=== PATIENT | female | born 1945 | race Caucasian/White ===

== ENCOUNTER 2023-08-12 15:36 | Emergency (ER) | payer MEDICARE ==
[2023-08-12 15:55] LABS: BASOPHILS # (AUTO) 0.1 10^3/uL (0.0-0.1); BASOPHILS % (AUTO) 0.8 %; EOSINOPHILS # (AUTO) 0.2 10^3/uL (0.0-0.7); EOSINOPHILS % (AUTO) 3.5 %; HCT - HEMATOCRIT 41.8 % (37.0-47.0); HGB - HEMOGLOBIN 13.3 g/dL (12.0-16.0); LYMPHOCYTES # (AUTO) 1.7 10^3/uL (1.5-3.5); LYMPHOCYTES % (AUTO) 27.2 %; MEAN CORPUSCULAR HEMOGLOBIN 29.1 pg (27.0-31.0); MEAN CORPUSCULAR HGB CONC 31.8 g/dL (32.0-36.0); MEAN CORPUSCULAR VOLUME 91.5 fL (81.0-99.0); MEAN PLATELET VOLUME 8.8 fL (7.9-10.8); MONOCYTES # (AUTO) 0.7 10^3/uL (0.0-1.0); MONOCYTES % (AUTO) 10.8 %; NEUTROPHILS # (AUTO) 3.7 10^3/uL (1.5-6.6); NEUTROPHILS % (AUTO) 57.5 %; PLT - PLATELET COUNT 285 10^3/uL (130-450); RED BLOOD COUNT 4.57 10^6/uL (4.20-5.40); RED CELL DISTRIBUTION WIDTH 13.6 % (12.0-15.0); WHITE BLOOD COUNT 6.4 x10^3/uL (4.8-10.8)
--- NOTE | 2023-08-12 15:58 | ED Physician Documentation ---
PD HPI HEAD INJURY - Stated complaint Stated Complaint: GLF/HEAD PX - History obtained from History obtained from: Patient, EMS - Additional information Additional information: Patient is a 78-year-old female presenting for evaluation of a head injury that occurred just prior to arrival. Patient tripped while at the [employer] grocery store hitting her head. She denies LOC. She does report pain to the head, neck, right shoulder and left knee. She believes she is on Plavix but denies history of stroke or cardiac stents and is unsure why she is on it.Denies chest pain, shortness of air, abdominal symptoms. Review of Systems Constitutional: denies: Fever Cardiac: denies: Chest pain / pressure Respiratory: denies: Dyspnea GI: denies: Abdominal Pain Neurologic: reports: Head injury. denies: Syncope PD PAST MEDICAL HISTORY - Past Medical History Cardiovascular: Hypertension - Past Surgical History Past Surgical History: No - Present Medications Home Medications: Ambulatory Orders Medication Instructions Recorded Confirmed Blood Pressure Med 08/12/23 Blood Thinner 08/12/23 Clopidogrel [Plavix] 75 mg PO ONCE 08/12/23 08/12/23 - Allergies Allergies/Adverse Reactions: Allergies Allergy/AdvReac Type Severity Reaction Status Date / Time diphenhydramine HCl * AdvReac Unknown Verified 08/12/23 16:12 [From Benadryl] - Social History Does the pt smoke?: No Smoking Status: Never smoker Does the pt drink ETOH?: No Does the pt have substance abuse?: No - Immunizations Immunizations are current?: Yes PD ED PE NORMAL - General General: Alert and oriented X 3, No acute distress, Well developed/nourished - HEENT HEENT: Atraumatic, Moist mucous membranes, Pharynx benign - Neck Neck: Other (C-collar in place) - Cardiac Cardiac: RRR, No murmur - Respiratory Respiratory: No respiratory distress, Clear bilaterally - Abdomen Abdomen: Soft, Non tender, Non distended - Derm Derm: Warm and dry - Extremities Extremities: Other (Left knee abrasion with good range of motion, right shoulder pain on range of motion which is chronic for patient due to history of rotator cuff injury) - Neuro Neuro: Alert and oriented X 3, 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, No motor deficit, No sensory deficit, Normal speech Eye Opening: Spontaneous Motor: Obeys Commands Verbal: Oriented GCS Score: 15 Results - Vitals Vitals: Vital Signs - 24 hr 08/12/23 08/12/23 15:36 16:14 Temperature 36.8 C Heart Rate 62 64 Respiratory 18 16 Rate Blood Pressure 185/99 H 159/76 H O2 Saturation 99 97 Oxygen O2 Source Room air - Labs Labs: Laboratory Tests 08/12/23 08/12/23 08/12/23 15:40 15:40 15:40 WBC 6.4 RBC 4.57 Hgb 13.3 Hct 41.8 MCV 91.5 MCH 29.1 MCHC 31.8 L RDW 13.6 Plt Count 285 MPV 8.8 Neut # (Auto) 3.7 Lymph # (Auto) 1.7 Kershaw # (Auto) 0.7 Eos # (Auto) 0.2 Baso # (Auto) 0.1 Absolute Nucleated RBC 0.00 Nucleated RBC % 0.0 PT 10.8 INR 1.0 Sodium 142 Potassium 4.0 Chloride 107 Carbon Dioxide 30 Anion Gap 5.0 L BUN 34 H Creatinine 0.9 Estimated GFR (MDRD) 60 L Glucose 99 Calcium 9.2 Total Bilirubin 0.5 AST 18 ALT 17 Alkaline Phosphatase 80 Total Protein 6.7 Albumin 4.4 Globulin 2.3 Albumin/Globulin Ratio 1.9 PD Medical Decision Making - ED course Complexity details: reviewed results, re-evaluated patient, d/w patient ED course: Patient is a 78-year-old presenting for evaluation of a head injury after a trip and fall at the grocery store. She believes she is on Plavix. There was no LOC. She was transported by EMS with a c-collar in place which was Done. A CT head and C-spine were obtained and reviewed and without acute injuries. I also remove the cervical collar and on exam she has no signs of ligamentous injury. X-rays of the right shoulder, left knee and chest were also obtained and reviewed without any acute findings. She does have degenerative changes In the shoulder and the knee. She is ambulatory here with a walker. 1725 - Patient is ambulatory. Departure - Departure Disposition: 01 Home, Self Care Clinical Impression: Head injury, Fall, Contusion of left knee, Right shoulder pain Condition: Stable Instructions: ED Head Injury Closed, ED Knee Pain [facility] Comments: The CT scan of your head and cervical spine both do not show any injuries from your fall such as bleeding or broken bone. We also x-rayed your right shoulder and left knee without any new findings but you do have degenerative changes to both areas. Please continue with acetaminophen as needed for pain. Please take caution when walking and moving around And make sure you are using your walker. Return to the ER with any worsening symptoms such as worsening headache.
[2023-08-12 16:02] LABS: PT - PROTHROMBIN TIME 10.8 secs (9.9-12.6)
[2023-08-12 16:14] VITALS: BP 159/76; O2SAT 97
[2023-08-12] MEDS ORDERED: ACETAMINOPHEN 325 MG TABLET PO STA (16:17)
[2023-08-12 16:32] LABS: ALBUMIN 4.4 g/dL (3.2-5.5); ALBUMIN/GLOBULIN RATIO 1.9 (1.0-2.2); BILIRUBIN,TOTAL 0.5 mg/dL (0.2-1.0); CALCIUM 9.2 mg/dL (8.5-10.3); CREATININE 0.9 mg/dL (0.6-1.3); TOTAL PROTEIN 6.7 g/dL (6.4-8.9)
--- NOTE | 2023-08-12 16:54 | CT Report ---
PROCEDURE: CERVICAL SPINE WO INDICATIONS: fall TECHNIQUE: Noncontrast 3 mm thick sections acquired from the skull base to the T4 level. Sagittal and coronal r eformats were then constructed. For radiation dose reduction, the following was used: automated exp osure control, adjustment of mA and/or kV according to patient size. COMPARISON: None. FINDINGS: Image quality: Excellent. Bones: No fractures or dislocations. Visualized superior ribs are intact. Grade 1 anterolisthesis of C5 on C6 secondary to facet arthrosis. Soft tissues: Prevertebral soft tissues are normal in thickness. No paravertebral hematomas. No ap ical pneumothoraces. IMPRESSION: No acute, displaced fracture or traumatic subluxation. Reviewed by: Vega Radford on 08/12/2023 4:53 PM PDT Approved by: Vega Radford on 08/12/2023 4:53 PM PDT Station ID: [id number]
--- NOTE | 2023-08-12 16:55 | CT Report ---
PROCEDURE: HEAD WO INDICATIONS: fall TECHNIQUE: Noncontrast 4.5 mm thick angled axial sections acquired from the foramen magnum to the vertex. For r adiation dose reduction, the following was used: automated exposure control, adjustment of mA and/or kV according to patient size. COMPARISON: None. FINDINGS: Image quality: Excellent. CSF spaces: Basal cisterns are patent. No extra-axial fluid collections. Ventricles are normal in size and shape. Brain: No midline shift. No intracranial masses or hemorrhage. Yen-white matter interface is norm al. Skull and face: Calvarium and visualized facial bones are intact, without suspicious lesions. Sinuses: Small focus of mucus impaction in the left posterior ethmoid air cell. IMPRESSION: No acute intracranial pathology. Reviewed by: Vega Radford on 08/12/2023 4:54 PM PDT Approved by: Vega Radford on 08/12/2023 4:54 PM PDT Station ID: [id number]
--- NOTE | 2023-08-12 17:06 | XRAY Report ---
PROCEDURE: Chest 1 View X-Ray INDICATIONS: fall TECHNIQUE: One view of the chest was acquired. COMPARISON: Correlation is made with the accompanying imaging. FINDINGS: Surgical changes and devices: None. Lungs and pleura: Supine Mediastinum: Mediastinal contours appear normal. Heart size is normal. Bones and chest wall: No suspicious bony lesions. Moderate dextroconvex scoliosis is seen. Age-appro priate degenerative changes are seen. Overlying soft tissues appear unremarkable. IMPRESSION: No acute abnormality is seen on this supine study. Dextroconvex scoliosis. Reviewed by: Darci Barrios MD on 08/12/2023 4:04 PM SHANICE Approved by: Darci Barrios MD on 08/12/2023 4:04 PM SHANICE Station ID: [id number]
--- NOTE | 2023-08-12 17:08 | XRAY Report ---
PROCEDURE: Shoulder 3 View RT INDICATIONS: fall TECHNIQUE: 3 views of the shoulder were acquired. COMPARISON: None. FINDINGS: Bones: Small cortical step off of the greater tuberosity. Acromioclavicular and glenohumeral osteoar thritis, with joint space narrowing and osteophytic change. Superior subluxation of the humerus. Soft tissues: No suspicious soft tissue calcifications. The visualized lungs are within normal limi ts. IMPRESSION: Small cortical step off of the greater tuberosity, which is favored to represent degenerative change rather than fracture given lack of significant joint effusion. Consider repeat exam in 10-14 days. 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 Superior subluxation of the humerus, presumably due to a chronic rotator cuff injury. Reviewed by: Vega Radford on 08/12/2023 5:06 PM PDT Approved by: Vega Radford on 08/12/2023 5:06 PM PDT Station ID: [id number]
--- NOTE | 2023-08-12 17:10 | XRAY Report ---
PROCEDURE: Knee 3 View LT INDICATIONS: fall TECHNIQUE: 3 views of the left knee(s) were acquired. COMPARISON: None. FINDINGS: Bones: No fractures or dislocations. Mild tricompartmental joint space narrowing and juxta-articula r osteophytosis, notable in the medial compartment. No suspicious bony lesions. Soft tissues: No knee joint effusion. No suspicious soft tissue calcifications or masses. IMPRESSION: 1.No acute bony abnormality. 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 Reviewed by: Brady Rodgers MD on 08/12/2023 5:09 PM PDT Approved by: Brady Rodgers MD on 08/12/2023 5:09 PM PDT Station ID: [id number]
== END 2023-08-12 17:50 | disposition home or self-care (01) ==
LOC: EDUNIT# → ED 15:36
DX: S09.90XA Unspecified injury of head, initial encounter (principal); S80.02XA Contusion of left knee, initial encounter; W18.30XA Fall on same level, unspecified, initial encounter; Y92.512 Supermarket, store or market as the place of occurrence of the external cause; I10 Essential (primary) hypertension; M25.511 Pain in right shoulder
CPT/HCPCS: 36415; 70450; 71045; 72125; 73030; 73562; 80053; 85025; 85610; 99283; 99284; A9270